=== PATIENT | male | born 1955 | race Caucasian/White ===

== ENCOUNTER 2020-09-10 15:08 | Emergency (ER) | payer BC ==
[2020-09-10 15:19] VITALS: BP 124/74; PULSE 110; TEMP 98; BMI 26.4
== END 2020-09-10 16:57 | disposition home or self-care (01) ==
LOC: JERFT 15:08
DX: J32.9 Chronic sinusitis, unspecified (principal); J98.01 Acute bronchospasm; R53.82 Chronic fatigue, unspecified
CPT/HCPCS: 70450-TC; 71046-TC-FY; 99284-25

== ENCOUNTER 2021-03-13 16:07 | Observation (INO) | payer BC ==
[2021-03-13 16:37] VITALS: BMI 26.4
[2021-03-13] MEDS ORDERED: OXYMETAZOLINE 0.05% NASAL SOLUTION 15 ML BOTTLE NS ONE (17:15)
[2021-03-13] MEDS ORDERED: methylPREDNISolone NA SUCC 40 MG/1 ML VIAL ONE (18:11)
[2021-03-13 18:49] LABS: CALCIUM 8.7 mg/dL (8.5-10.1)
[2021-03-13 18:50] LABS: ALBUMIN 3.5 g/dl (3.4-5.0); BLOOD UREA NITROGEN 10.7 mg/dL (7-18)
[2021-03-13 18:53] LABS: CREATININE 0.6 mg/dL (0.55-1.3)
[2021-03-13 18:55] LABS: BILIRUBIN,TOTAL 0.6 mg/dL (0.2-1); TOT PROT 7.2 g/dl (6.4-8.2)
[2021-03-13] MEDS ORDERED: SODIUM CHLORIDE 0.9% 500 ML INFUS.BAG IV ONE (19:40)
[2021-03-13] MEDS ORDERED: DEXAMETHASONE SOD PHOSPHATE 10 MG/1 ML VIAL IVPUSH ONE (21:02)
[2021-03-13] MEDS ORDERED: ALBUTEROL SO4 HFA INHALER IH ONE ×2 (21:03→22:06)
[2021-03-13 21:23] VITALS: TEMP 97.2
[2021-03-13] MEDS ORDERED: DEXAMETHASONE SOD PHOSPHATE 10 MG/1 ML VIAL ONE (21:25)
[2021-03-13 22:24] LABS: BASO % 0.3 % (0-2.0); EOS % 1.9 % (0-4.5); HEMATOCRIT 40.3 % (35.4-49); HEMOGLOBIN 13.9 GM/dL (11.7-16.9); LYMPH % 33.1 % (8-40); MCH 30.4 pg (25.7-33.7); MCHC 34.5 g/dl (32.0-35.9); MEAN PLT VOLUME 7.3 fl (7.5-11.1); MONO % 8.5 % (3.8-10.2); NEUT % 56.2 % (42.8-82.8); PLATELET COUNT 156 10^3/uL (134-434); RBC 4.58 M/mm3 (4.00-5.60); RDW 12.9 % (11.9-15.9); WHITE BLOOD COUNT 5.1 K/mm3 (4.0-10.0)
[2021-03-14] MEDS ORDERED: AZITHROMYCIN 250 MG TABLET PO ONE (00:37)
[2021-03-14] MEDS ORDERED: ALBUTEROL SO4 HFA INHALER IH PRN (00:39)
[2021-03-14] MEDS ORDERED: diphenhydrAMINE HCL 25 MG CAPSULE (FP) PO ONE ×2 (00:57→02:55)
[2021-03-14] MEDS: methylPREDNISolone NA SUCC 40 MG/1 ML VIAL IVPUSH SCH ×2 (01:00→09:50)
[2021-03-14 07:56] LABS: BASO % 0.5 % (0-2.0); HEMATOCRIT 46.5 % (35.4-49); HEMOGLOBIN 16.1 GM/dL (11.7-16.9); LYMPH % 18.9 % (8-40); MCH 30.5 pg (25.7-33.7); MCHC 34.7 g/dl (32.0-35.9); MEAN CELL VOLUME 87.8 fl (80-96); MEAN PLT VOLUME 7.4 fl (7.5-11.1); MONO % 1.7 % (3.8-10.2); NEUT % 78.9 % (42.8-82.8); PLATELET COUNT 185 10^3/uL (134-434); RBC 5.29 M/mm3 (4.00-5.60); WHITE BLOOD COUNT 3.9 K/mm3 (4.0-10.0)
[2021-03-14 08:27] LABS: CALCIUM 9.1 mg/dL (8.5-10.1)
[2021-03-14 08:28] LABS: BLOOD UREA NITROGEN 12.1 mg/dL (7-18)
[2021-03-14 08:29] LABS: CHOLESTEROL 202 mg/dL (50-200); TRIGLYCERIDES 58 mg/dL (0-150)
[2021-03-14 08:30] LABS: LDL CHOLESTEROL (ONLY SJRH) 141 mg/dL (5-100)
[2021-03-14 08:31] LABS: CREATININE 0.6 mg/dL (0.55-1.3)
[2021-03-14 08:32] LABS: HDL CHOLESTEROL 41 mg/dL (40-60)
[2021-03-14] MEDS ORDERED: FAMOTIDINE 20 MG TABLET ONE (09:48)
[2021-03-14] MEDS ORDERED: ENOXAPARIN NA (PORCINE) 40 MG/0.4 ML DISP.SYRIN SQ ONE (09:49)
[2021-03-14] MEDS ORDERED: methylPREDNISolone NA SUCC 40 MG/1 ML VIAL ONE (09:49)
[2021-03-14] MEDS ORDERED: ENOXAPARIN NA (PORCINE) 40 MG/0.4 ML DISP.SYRIN SQ SCH (10:00)
[2021-03-14] MEDS ORDERED: FAMOTIDINE 20 MG TABLET PO SCH (10:00)
[2021-03-14] MEDS ORDERED: BUDESONIDE/FORMETEROL FUMARATE 160/4.5 mcg INHALER IH SCH (10:00)
[2021-03-14] MEDS ORDERED: NICOTINE 7 MG/24 HOURS TOPICAL PATCH TD SCH (12:00)
[2021-03-14] MEDS ORDERED: ALBUTEROL SO4 HFA INHALER IH SCH (12:00)
[2021-03-14] MEDS ORDERED: CASIRIVIMAB/IMDEVIMAB 10 ML in SODIUM CHLORIDE 100 ML IVPB ONE (12:00)
[2021-03-14] MEDS ORDERED: FLUTICASONE PROP 0.05% 16 GM NASAL SPRAY NS SCH (12:00)
[2021-03-14 17:09] VITALS: BP 128/74; PULSE 89
[2021-03-15] MEDS ORDERED: AZITHROMYCIN 250 MG TABLET PO SCH (10:00)
== END 2021-03-14 17:25 | disposition home or self-care (01) ==
LOC: JER 16:07 → JERBED 22:17
PROVIDERS: ADMIT Internal Medicine
PROC: 3E033GC Introduction of Other Therapeutic Substance into Peripheral Vein, Percutaneous Approach (ICD-10-PCS; principal; 2021-03-13)
PROC: 3E023GC Introduction of Other Therapeutic Substance into Muscle, Percutaneous Approach (ICD-10-PCS; 2021-03-13)
PROC: 3E0337Z Introduction of Electrolytic and Water Balance Substance into Peripheral Vein, Percutaneous Approach (ICD-10-PCS; 2021-03-13)
DX: U07.1 COVID-19 (principal); J44.9 Chronic obstructive pulmonary disease, unspecified; R79.89 Other specified abnormal findings of blood chemistry; K21.9 Gastro-esophageal reflux disease without esophagitis; R21 Rash and other nonspecific skin eruption; L53.8 Other specified erythematous conditions; R20.2 Paresthesia of skin; I71.9 Aortic aneurysm of unspecified site, without rupture; D35.00 Benign neoplasm of unspecified adrenal gland; Z29.9 Encounter for prophylactic measures, unspecified; Z72.0 Tobacco use
CPT/HCPCS: 36415; 71275-TC; 80048; 80053; 80061; 82550; 83036; 84484; 85025; 87804; 87807; 93005; 93010; 93970-TC; 94761; 99285-25; C9803; G0378; J1100; Q0240; Q9967; U0003; U0005